=== PATIENT | female | born 1975 | race Two or more races ===

== ENCOUNTER 2020-07-13 12:54 | Outpatient (REF) | payer OTHER, SELFPAY ==
--- NOTE | ~2020-07-13 | MM_ITS ---
EXAMINATION: MM SCREENING DIGITAL BREAST TOMOSYNTHESIS, BILATERAL CLINICAL INFORMATION: Screening. Asymptomatic. The lifetime risk of breast cancer based on the Tyrer-Cuzick Model is 9%. COMPARISON: Mammography: 04/18/2019, 04/12/2018, 03/30/2017, 03/06/2017, 02/13/2016, 01/24/2015, 08/13/2013 TECHNIQUE: Digital breast tomosynthesis is performed in both the craniocaudal and mediolateral oblique views along with computer-aided detection (CAD). Synthesized 2D images are generated from the tomosynthesis. FINDINGS: The breasts are heterogeneously dense, which may obscure small masses (ACR BI-RADS breast composition Category c). The right CC tomography demonstrates a 0.7 cm asymmetric density just medial to midline 7 cm from nipple without correlate on MLO view. This could represent shifting fibroglandular tissue. Patient will be recalled for additional imaging. The remainder of the bilateral breasts show no significant changes from prior studies. There is no developing density or interval mass or architectural abnormality. Some scattered punctate regional calcifications again noted upper outer right breast. MM/MM tomosynthesis screening BI IMPRESSION: 1. Right: Asymmetric density medial to midline 7 cm from nipple on CC tomography, possibly shifting fibroglandular tissue. 2. Left: No mammographic evidence of malignancy. ASSESSMENT: BI-RADS 0: Incomplete - Need Additional Imaging Evaluation RECOMMENDATION: 1. Additional views of the right breast (3-D spot CC, 3-D rolled CC x2). 2. Targeted ultrasound if warranted after review of the additional views. 3. Radiology department staff will contact the patient for additional imaging. This patient's information was entered into a reminder system with a target due date for their next mammogram.
== END 2020-07-13 12:55 | disposition home or self-care (01) ==
LOC: HO.MAMMO 12:54
PROVIDERS: PCP Nurse Practitioner Family; Visit Provider Nurse Practitioner Family
DX: Z12.31 Encounter for screening mammogram for malignant neoplasm of breast (principal)
CPT/HCPCS: 77063; 77067

== ENCOUNTER 2020-07-20 07:56 | Outpatient (REF) | payer OTHER, SELFPAY ==
--- NOTE | ~2020-07-20 | MM_ITS ---
EXAMINATION: MM DIAGNOSTIC DIGITAL BREAST TOMOSYNTHESIS, RIGHT CLINICAL INFORMATION: Recall from screening for asymmetric density posterior breast just medial to midline on CC view possibly shifting fibroglandular densities. COMPARISON: Mammography: 07/13/2020, and prior exams dating back to 08/13/2013 TECHNIQUE: Digital breast tomosynthesis is performed. 2D images are generated from the tomosynthesis. The following views are obtained: 3-D rolled CC x2, 3-D spot CC. FINDINGS: The breasts are heterogeneously dense, which may obscure small masses (ACR BI-RADS breast composition Category c). Additional views show no mass or persistent asymmetric density. There is no developing density or architectural abnormality. Results are discussed with the patient at time of visit. MM/MM tomosynthesis added views R IMPRESSION: Additional views show no persistent asymmetric density. ASSESSMENT: BI-RADS 1: Negative RECOMMENDATION: Routine annual mammography screening. This patient's information was entered into a reminder system with a target due date for their next mammogram.
== END 2020-07-20 07:57 | disposition home or self-care (01) ==
LOC: HO.MAMMO 07:56
PROVIDERS: Visit Provider Nurse Practitioner Family
DX: R92.2 Inconclusive mammogram (principal)
CPT/HCPCS: 77061; 77065

== ENCOUNTER → 2020-12-29 08:26 | Outpatient (BNVA) | payer OTHER, SELFPAY | PROVIDERS: PCP Nurse Practitioner Family; Visit Provider Physician Assistant Medical | DX: M22.2X1 Patellofemoral disorders, right knee (principal) | CPT/HCPCS: 73564; 99203 ==

== ENCOUNTER → 2021-01-12 09:48 | Outpatient (BNVA) | payer OTHER, SELFPAY | PROVIDERS: PCP Nurse Practitioner Family; Visit Provider Physician Assistant Medical | DX: M22.2X1 Patellofemoral disorders, right knee (principal) | CPT/HCPCS: 99213 ==

== ENCOUNTER → 2021-01-26 13:08 | Outpatient (BNVA) | payer OTHER, SELFPAY | PROVIDERS: PCP Nurse Practitioner Family; Visit Provider Physician Assistant Medical | DX: M22.2X1 Patellofemoral disorders, right knee (principal) | CPT/HCPCS: 99213 ==

== ENCOUNTER 2021-03-08 08:00 | Outpatient (RCR) | payer OTHER, SELFPAY | END 2021-06-15 13:53 | disposition home or self-care (01) | LOC: HO.PT 08:00 | PROVIDERS: Visit Provider Nurse Practitioner Family | DX: M62.89 Other specified disorders of muscle (principal) | CPT/HCPCS: 97110; 97112; 97140; 97162; 97530 ==

== ENCOUNTER 2021-03-24 08:00 | Outpatient (RCR) | payer OTHER, SELFPAY ==
--- NOTE | 2021-01-05 12:40 | MHC.PT.EP ---
[facility] [place] Office [place] Office [place] Office [address] Caitlyn Pierce [address] [phone] F: [phone] F: [phone] F: [phone] F: [phone] Physical Therapy Plan of Care Date of Evaluation: Date of Surgery: Diagnosis: This is a 45 yo female presenting to skilled PT with a script for R PFS Assessment: This is a 45 yo female presenting to skilled PT with a script for R PFS. Patient reported 7 years ago she dislocated her R patella (improved with PT in the past, did not have surgical intervention). She returned to work in full and began at the gym however recently pain has started to increase and patient wants to conservatively tx in order to improve symptoms but also to prevent further injury. She is being followed by work connection and returns next week for a follow up. She does not have a referral to an orthopedic as of yet. Pain increases with sitting, standing, walking and squatting (prolonged positioning). Pain is located around the patella/anterior knee and is described as sharp at times and achy at others. She has not worked out for almost 2 months due to worry of reinjury. She notes swelling but denies crepitis, numbness or tingling. Assessment reveals pain that ranges up to a 4/10. She demos decreased hip ROM IR/ER with end range due to knee pain, decreased hip adductor and glut strength, impaired gait pattern with hip drop and increased ER, impaired patella joint mobility with hypermobility, TTP throughout medial aspect of knee joint as well as gross functional decline with prolonged positions. She is a good candidate for skilled PT 2x/wk for 6wks. Frequency and Duration: The patient will be seen 2x/wk for 6wks Short Term Goals: I in HEP Demo proper squatting techniques without increase in pain Insurance Verifier Goals: Return to gym safely and independently Report improvement in pain to no more than 2/10 at the worst Tolerate sitting/standing for at least at hour without increase in pain Improve LEFs by 10 points 5/5 BLE strength Treatment Plan: Modalities to reduce pain, spasms and effusion. Manual therapy to restore motion and function. Therapeutic exercise to improve strength and flexibility. Neuromuscular re-education for posture and balance. Therapeutic activities to return to functional activities of daily living. Electronically signed by: Macy Coffey PT Please sign and return to therapist. Thank you for your referral.
--- NOTE | 2021-02-15 11:38 | MHC.PT.RE ---
[facility] [place] Office [place] Office [place] Office [address] Caitlyn Pierce [address] [phone] F: [phone] F: [phone] F: [phone] F: [phone] Physical Therapy Re-evaluation Diagnosis: This is a 45 yo female presenting to skilled PT with a script for R PFS Date of Surgery: Date of Evaluation: 01/05/21 Treatments to Date: 10 Cancellations to Date: 1 No Shows to Date: 0 Subjective: Pt reports intermittent lateral R knee pain that occurs with stairs sometimes. She states she can work through the pain but it is there Pain Score: 3 Pain Location: R patella Objective Measures: lumbar/hip/knee AROM WNL MMT: hip flexion B 5/5, Glut max B 4+/5, Adductors R 4/5, L 4-/5, Glut med R 4-/5, L 4/5, ER/IR B 5/5, quad/HS B 5/5 Assessment: Pt reports she would like to continue with therapy as she feels that it is helping. She is able to ascend/descend stairs with intermittent pain where intiially she was unable to without breaks due to pain. She is I with HEP and has bought a [employer] ball for home. She has made improvements with normal AROM of lumbar/hip region, improved B LE strength (see objective measurements), and improved function. She would benefit from continued PT 1x/week for 4 more weeks to progress adductor and abductor strength to assist decrease in R patella pain and return to previous functional level. Short Term Goals: I in HEP met Demo proper squatting techniques without increase in pain met Assisted Goals: Return to gym safely and independently Report improvement in pain to no more than 2/10 at the worst -progressing (3/10) Tolerate sitting/standing for at least at hour without increase in pain (progressing with intermittent pain at times0 Improve LEFs by 10 points 5/5 BLE strength progressing Pt will be able to run > 15min with pain < 2/10 Frequency and Duration: The patient will be seen 1x/week for 4 more weeks Treatment Plan: Therapeutic Exercise Dynamic Therapeutic Activities Neuromuscular Re-ed Taping Home Exercise Program Patient Education educate on self taping Reviewed/ Agreed with Student Documentation: Therapist: Electronically signed by: Sapphire Kearney PT Please sign and return to therapist. Thank you for your referral.
--- NOTE | 2021-03-25 13:07 | MHC.PT.DC ---
[facility] [place] Office [place] Office [place] Office [address] Caitlyn Pierce [address] [phone] F: [phone] F: [phone] F: [phone] F: [phone] Physical Therapy Discharge Report Diagnosis: This is a 45 yo female presenting to skilled PT with a script for R PFS Date of Surgery: Date of Evaluation: 01/05/21 Date of Discharge: 03/25/21 Treatments to Date: 16 Cancellations to Date: 1 No Shows to Date: 0 Discharge Status: Achieved Goals Improved Function Independent with HEP Discharge Summary: Pt has made good progress towards goals allowing her to meet some and come close to meeting others. She is independent and compliant with her HEP at this point and will likely only continue to progress with continuation of HEP. Provided current HEP printouts and reviewed all exercises. Pt in agreement with plan to d/c to HEP. She has no pain at the last tx session and is ready for DC. She has a home gym that she is looking forward to getting back to. Electronically signed by: Macy Coffey, PT Please sign and return to therapist. Thank you for your referral.
== END 2021-03-25 13:08 | disposition home or self-care (01) ==
LOC: HO.PTCHIC 08:00
PROVIDERS: PCP Nurse Practitioner Family; Visit Provider Physician Assistant Medical
DX: M25.561 Pain in right knee (principal)
CPT/HCPCS: 97035; 97110; 97140; 97161; 97530

== ENCOUNTER 2021-08-25 16:10 | Outpatient (REF) | payer OTHER, SELFPAY ==
[2021-08-25 16:23] LABS: MANUAL DIFF FLAG NO
[2021-08-25 16:30] LABS: Basophils Percent Auto 0.4 % (0-2); Eosinophils Absolute Auto 0.2 X10*3/uL (0.0-0.4); Eosinophils Percent Auto 2.3 % (0-4); Hematocrit 35.4 % (37.0-47.0); Hemoglobin 11.6 g/dl (12.0-16.0); Imm Gran Abs Auto 0.02 X10*3/uL (0.00-0.03); Imm Gran Pct Auto 0.2 % (0.0-0.4); Lymphocytes Absolute Auto 3.2 X10*3/uL (1.2-4.9); Lymphocytes Percent Auto 34.7 % (20-40); Mean Corpuscular HGB Conc 32.8 g/dl (31.0-35.0); Mean Corpuscular Hemoglobin 28.2 pg (27.0-33.0); Mean Corpuscular Volume 85.9 fL (80.0-98.0); Mean Platelet Volume 9.7 fL (9.4-12.3); Monocytes Absolute Auto 0.6 X10*3/uL (0.1-1.2); Monocytes Percent Auto 6.8 % (2-11); Neutrophils Percent Auto 55.6 % (45-73); Platelet Count 220 X10*3/uL (160-400); Red Blood Count 4.12 X10*6/uL (4.20-5.50); Red Cell Distribution Width 12.4 % (11.0-16.0); White Blood Count 9.1 X10*3/uL (4.8-10.8)
[2021-08-25 17:21] LABS: Alanine Aminotransferase 12 U/L (0-31); Albumin Level 4.1 g/dL (3.5-5.0); Alkaline Phosphatase 86 U/L (39-117); Anion Gap 11 (12-20); Aspartate Amino Transferase 16 U/L (5-31); Bilirubin Total < 0.2 mg/dL (0.0-1.0); Blood Urea Nitrogen 13 mg/dL (9-16); Calcium 9.3 mg/dL (8.4-10.2); Carbon Dioxide 27 mmol/L (22-29); Chloride 104 mmol/L (96-108); Estimated Glomerular Filt Rate > 60; Glucose Random 112 mg/dL (60-115); Potassium 3.9 mmol/L (3.3-5.1); Sodium 138 mmol/L (135-145); Total Protein 7.6 g/dL (6.5-8.0)
[2021-08-25 17:23] LABS: Vitamin B12 > 2000 pg/mL (200-900)
== END 2021-08-25 16:11 | disposition home or self-care (01) ==
LOC: HO.LAB 16:10
PROVIDERS: PCP Nurse Practitioner Family; Visit Provider Nurse Practitioner Family
DX: R53.83 Other fatigue (principal); E53.8 Deficiency of other specified B group vitamins
CPT/HCPCS: 36415; 80053; 82607; 85025

== ENCOUNTER 2021-08-31 07:47 | Outpatient (REF) | payer OTHER, SELFPAY ==
--- NOTE | ~2021-08-31 | MM_ITS ---
EXAMINATION: MM SCREENING DIGITAL BREAST TOMOSYNTHESIS, BILATERAL CLINICAL INFORMATION: Screening. Asymptomatic. The lifetime risk of breast cancer based on the Tyrer-Cuzick Model is 9%. COMPARISON: Mammography: 07/20/2020 and prior exams dating back to 08/13/2013. TECHNIQUE: Digital breast tomosynthesis is performed in both the craniocaudal and mediolateral oblique views along with computer-aided detection (CAD). Synthesized 2D images are generated from the tomosynthesis. FINDINGS: The breasts are extremely dense, which lowers the sensitivity of mammography (ACR BI-RADS breast composition Category d). Right CC view has asymmetric density anterior outer breast 2.5 cm from nipple, measuring approximately 1 cm in size, possibly summation artifact. No correlate on MLO view. Patient will be recalled for additional imaging. The area of recall represents a different area from prior recall 2020. The remainder of the right breast is similar to prior exams. Left breast shows no significant mass or architectural abnormality. Neither breast shows abnormal calcifications. The bilateral axilla and skin contours are unremarkable. MM/MM tomosynthesis screening BI IMPRESSION: Right: -Asymmetric density anterior outer breast on CC view, possibly summation artifact. Left: -No mammographic evidence of malignancy. ASSESSMENT: BI-RADS 0: Incomplete - Need Additional Imaging Evaluation RECOMMENDATION: 1. Additional views of the right breast (spot CC, rolled CC x2). 2. Targeted ultrasound if warranted after review of the additional views. 3. Radiology department staff will contact the patient for additional imaging. This patient's information was entered into a reminder system with a target due date for their next mammogram.
== END 2021-08-31 07:48 | disposition home or self-care (01) ==
LOC: HO.MAMMO 07:47
PROVIDERS: Absent Provider Obstetrics & Gynecology; PCP Nurse Practitioner Family; Visit Provider Nurse Practitioner Family
DX: Z12.31 Encounter for screening mammogram for malignant neoplasm of breast (principal)
CPT/HCPCS: 77063; 77067

== ENCOUNTER 2021-09-10 14:58 | Outpatient (REF) | payer OTHER, SELFPAY ==
--- NOTE | ~2021-09-10 | MM_ITS ---
EXAMINATION: MM DIAGNOSTIC DIGITAL BREAST TOMOSYNTHESIS, RIGHT CLINICAL INFORMATION: Density lateral aspect right breast COMPARISON: Mammography: August 31, 2021 and studies dating back to August 13, 2013 TECHNIQUE: Digital breast tomosynthesis is performed. 2D images are generated from the tomosynthesis. The following views are obtained: Medial and lateral rolled craniocaudal views as well as spot compression craniocaudal view. FINDINGS: The breasts are extremely dense, which lowers the sensitivity of mammography (ACR BI-RADS breast composition Category d). Additional views show no significant mass, architectural abnormality, or abnormal calcifications. Results are provided to the patient at time of visit by the technologist. MM/MM tomosynthesis added views R IMPRESSION: Question right breast density corresponds to superimposition of fibroglandular tissue with no persistent underlying abnormality appreciated. ASSESSMENT: BI-RADS 1: Negative RECOMMENDATION: Routine annual mammography screening due in 12 months. This patient's information was entered into a reminder system with a target due date for their next mammogram.
== END 2021-09-10 14:59 | disposition home or self-care (01) ==
LOC: HO.MAMMO 14:58
PROVIDERS: PCP Obstetrics & Gynecology; Visit Provider Nurse Practitioner Family
DX: R92.2 Inconclusive mammogram (principal)
CPT/HCPCS: 77061; 77065

== ENCOUNTER 2021-10-19 11:12 | Outpatient (REF) | payer OTHER, SELFPAY ==
[2021-10-19 12:16] LABS: MANUAL DIFF FLAG NO
[2021-10-19 12:47] LABS: Basophils Percent Auto 0.4 % (0-2); Eosinophils Absolute Auto 0.3 X10*3/uL (0.0-0.4); Eosinophils Percent Auto 3.3 % (0-4); Hematocrit 36.6 % (37.0-47.0); Hemoglobin 12.1 g/dl (12.0-16.0); Imm Gran Abs Auto 0.02 X10*3/uL (0.00-0.03); Imm Gran Pct Auto 0.2 % (0.0-0.4); Lymphocytes Absolute Auto 3.1 X10*3/uL (1.2-4.9); Lymphocytes Percent Auto 32.4 % (20-40); Mean Corpuscular HGB Conc 33.1 g/dl (31.0-35.0); Mean Corpuscular Hemoglobin 28.2 pg (27.0-33.0); Mean Corpuscular Volume 85.3 fL (80.0-98.0); Mean Platelet Volume 9.6 fL (9.4-12.3); Monocytes Absolute Auto 0.8 X10*3/uL (0.1-1.2); Monocytes Percent Auto 8.5 % (2-11); Neutrophils Absolute Auto 5.2 x10*3/uL (2.0-8.3); Neutrophils Percent Auto 55.2 % (45-73); Platelet Count 251 X10*3/uL (160-400); Red Blood Count 4.29 X10*6/uL (4.20-5.50); White Blood Count 9.5 X10*3/uL (4.8-10.8)
[2021-10-19 13:14] LABS: Iron 89 mcg/dL (30-160); Percent Iron Saturation 22 % (15-50); Total Iron Binding Capacity 397 mcg/dL (228-428); Unsaturated Iron Binding 308 ug/dL
== END 2021-10-19 11:13 | disposition home or self-care (01) ==
LOC: HO.LAB 11:12
PROVIDERS: PCP Nurse Practitioner Family; Visit Provider Nurse Practitioner Family
DX: D50.8 Other iron deficiency anemias (principal)
CPT/HCPCS: 36415; 83540; 85025

== ENCOUNTER 2021-12-24 16:42 | Emergency (ER) | payer OTHER, SELFPAY ==
[2021-12-24 16:48] VITALS: BP 141/83; PULSE 100; RESP 18; TEMP 36.7; O2SAT 97; BMI 22.4
--- NOTE | 2021-12-24 16:53 | ED.ANIMALBIT ---
HPI - Animal Bite General Chief Complaint: Animal Bite Stated Complaint: bit by dog Time Seen by Provider: 12/24/21 16:48 Source: patient Mode of arrival: ambulatory Limitations: no limitations History of Present Illness HPI narrative: 46 yo female presents to the ER for evaluation of dog bites. She states just prior to arrival her brother's [place] bulldog attacked her from behind, biting her right upper and inner thigh and also got some of her left heel. The dog it up to date on his vaccinations. Patient is not up to date on her Tdap. She reports a burning type pain on the lacerations to the inner upper right thigh. There are a few superficial ones as well as one with exposed adipose tissue. complaint: animal bite Onset (ago): minute(s) Animal: dog Description of animal: household pet Mechanism: bite Location - Extremities: left: foot and right: thigh Pain description: burning Severity scale (1-10): 5 Associated symptoms: none Related Data Patient tetanus UTD: No Previous Rx's Medication Instructions Recorded amoxicillin 875 mg-potassium 1 tab PO BID #14 tabs 12/24/21 clavulanate 125 mg tablet ibuprofen 600 mg tablet 600 mg PO Q8H PRN pain #20 tabs 12/24/21 Allergies Allergy/AdvReac Type Severity Reaction Status Date / Time sulfamethoxazole Allergy Intermediate HIVES Unverified 12/05/19 15:18 [From BACTRIM DS] trimethoprim Allergy Intermediate HIVES Unverified 12/05/19 15:18 [From BACTRIM DS] Sulfa (Sulfonamide Allergy Unknown Verified 09/15/16 00:00 Antibiotics) Review of Systems Review of Systems: Constitutional: No Fever, No Chills ENT/Mouth: No sore throat, No Rhinorrhea Cardiovascular: No Chest Pain, No SOB Gastrointestinal: No Nausea, No Vomiting, No abdominal Pain Musculoskeletal: No joint pain, No Myalgias Skin: + Skin Lesions, No rash Neuro: No Weakness, No Numbness Psych: + Anxiety/Panic, No Depression Heme/Lymph: No Bruising, No Lymphadenopathy PMFSH Social History Social History Advance Directives: No Advance Directives Information Provided: No Physical Exam ED Vital Signs: Vital Signs - 24 hr 12/24/21 16:48 Temperature 98.0 F Pulse Rate 100 Respiratory Rate 18 Blood Pressure 141/83 H Pulse Oximetry 97 Oxygen Delivery Method Room Air BMI result Body Mass Index 22.4 Appearance: Alert. Oriented X3. No acute distress. HEENT: normal inspection CVS: Normal heart rate and rhythm. Pulses normal. Respiratory: No respiratory distress. Skin: Skin warm and dry. Normal skin color. Normal skin turgor. No rashes. Extremities: right upper inner thigh with a 3cm linear superficial laceration with exposed adipose tissue, no active bleeding, small superficial abrasions surrounding. left heel with small wound, superficial Neuro: Oriented X 3. No motor deficit. No sensory deficit. Course Course Course Narrative: 46 y/o female presenting with right upper thigh laceration from a dog bite - amenable to suture repair. will also give tdap. Reevaluation(s) Reevaluation #1: wounds extensive irrigated. 1 lac was repaired with 2 sutures. wound care and infection precautions discussed. 1st dose of Augmentin given. stable for d/c. Procedures Laceration Laceration 1: Site: lower extremity Side (If applicable): right Size (cm): 2.5 Description: linear Depth: simple, single layer Local Anesthetic: lidocaine 1% Amount of anesthesia used (mL): 4 Pre-repair: wound explored and irrigated extensively Skin layer closed with: nylon Size (cm): 4-0 Number of sutures: 2 Technique: simple, interrupted Critical Care Time Critical Care Time Critical Care Time: No Discharge Plan Discharge Clinical Impression: Bite by animal Patient Disposition: Home, Self-Care Instructions: Animal Bite (ED) Additional Instructions: Take the prescribed antibiotic as directed, complete the entire course If you develop signs and symptoms of infection like increased pain, redness, drainage of pus call your doctor or come back to the ER for further evaluation Prescriptions: New amoxicillin-pot clavulanate 875-125 mg tablet 1 tab PO BID Qty: 14 0RF ibuprofen 600 mg tablet 600 mg PO Q8H PRN (Reason: pain) Qty: 20 0RF Referrals: Milagro Miller NP [Primary Care Provider] - (dog bite)
[2021-12-24] MEDS: Amoxicillin/Potassium Clav 875 MG TABLET PO (17:26)
[2021-12-24] MEDS: Ibuprofen 600 MG TABLET PO (17:26)
[2021-12-24] MEDS: Lidocaine HCl 2 % MPF 5 ML VIAL INFILTRATI ×2 (17:27)
[2021-12-24] MEDS: Diphth,Pertus(ACell),Tet Adult 0.5 ML SYRINGE IM (17:33)
== END 2021-12-24 18:08 | disposition home or self-care (01) ==
PROVIDERS: Emergency Provider Emergency Medicine; PCP Nurse Practitioner Family
DX: S70.372A Other superficial bite of left thigh, initial encounter (principal); S70.371A Other superficial bite of right thigh, initial encounter; S80.812A Abrasion, left lower leg, initial encounter; S80.811A Abrasion, right lower leg, initial encounter; W54.0XXA Bitten by dog, initial encounter; Y93.9 Activity, unspecified; Y92.9 Unspecified place or not applicable; Y99.9 Unspecified external cause status; Z79.899 Other long term (current) drug therapy
CPT/HCPCS: 12001; 90471; 90715; 99283; 99284

== ENCOUNTER 2022-09-06 07:36 | Outpatient (REF) | payer OTHER, SELFPAY ==
--- NOTE | ~2022-09-06 | MM_ITS ---
EXAMINATION: MM SCREENING DIGITAL BREAST TOMOSYNTHESIS, BILATERAL CLINICAL INFORMATION: Screening. Asymptomatic. The lifetime risk of breast cancer based on the Tyrer-Cuzick Model is 9%. COMPARISON: Mammography: 09/10/2021, 08/31/2021, 07/20/2020, 07/13/2020, 04/18/2019 TECHNIQUE: Digital breast tomosynthesis is performed in both the craniocaudal and mediolateral oblique views along with computer-aided detection (CAD). Synthesized 2D images are generated from the tomosynthesis. FINDINGS: The breasts are heterogeneously dense, which may obscure small masses (ACR BI-RADS breast composition Category c). Parenchymal pattern borders on extremely dense. No developing density or architectural abnormality. There are no significant masses, abnormal calcifications, or other abnormalities. The axilla and skin contours are unremarkable. No significant changes. MM/MM tomosynthesis screening BI IMPRESSION: No mammographic evidence of malignancy. ASSESSMENT: BI-RADS 1: Negative RECOMMENDATION: -Routine annual mammography screening. This patient's information was entered into a reminder system with a target due date for their next mammogram.
== END 2022-09-06 07:37 | disposition home or self-care (01) ==
LOC: HO.MAMMO 07:36
PROVIDERS: PCP Nurse Practitioner Family; Visit Provider Nurse Practitioner Family
DX: Z12.31 Encounter for screening mammogram for malignant neoplasm of breast (principal)
CPT/HCPCS: 77063; 77067

== ENCOUNTER 2023-08-15 11:53 | Outpatient (REF) | payer OTHER, SELFPAY ==
--- NOTE | ~2023-08-15 | US_ITS ---
EXAMINATION: US BREAST, BILATERAL CLINICAL INFORMATION: Heterogeneously dense breasts. COMPARISON: No prior screening ultrasound. Previous mammography 09/06/2022, 08/31/2021, 07/13/2020. TECHNIQUE: High-resolution grayscale sonography of the bilateral breasts was performed by a technologist with a high frequency linear transducer following a standardized protocol. All 4 quadrants of each breast including retroareolar areas were imaged, as well as bilateral axillary regions. FINDINGS: LEFT BREAST: There is heterogeneously dense breast parenchyma identified. No mass, abnormal shadowing, area of architectural distortion, complex cyst or other sonographically suspicious lesion is identified. RIGHT BREAST: There is heterogeneously dense breast parenchyma identified. No mass, abnormal shadowing, area of architectural distortion, complex cyst or other sonographically suspicious lesion is identified. US/US breast BI complete IMPRESSION: No sonographic evidence of malignancy in either breast. ASSESSMENT: Left breast: BI-RADS 1 Right breast: BI-RADS 1 RECOMMENDATION: Routine annual mammography screening.
== END 2023-08-15 11:54 | disposition home or self-care (01) ==
LOC: HO.MAMMO 11:53
PROVIDERS: Visit Provider Obstetrics & Gynecology
DX: R92.333 Mammographic heterogeneous density, bilateral breasts (principal)
CPT/HCPCS: 76641

== ENCOUNTER → 2023-08-15 12:00 | Outpatient (BNV) | payer OTHER, SELFPAY | PROVIDERS: Visit Provider Radiology Diagnostic Radiology | DX: R92.333 Mammographic heterogeneous density, bilateral breasts (principal) | CPT/HCPCS: 76641 ==

== ENCOUNTER → 2023-09-20 12:15 | Outpatient (BNV) | payer BC, SELFPAY | PROVIDERS: Visit Provider Radiology Diagnostic Radiology | DX: Z12.31 Encounter for screening mammogram for malignant neoplasm of breast (principal) | CPT/HCPCS: 77063; 77067 ==

== ENCOUNTER 2023-09-20 12:19 | Outpatient (REF) | payer BC, SELFPAY | END 2023-09-20 12:20 | disposition home or self-care (01) | LOC: HO.MAMMO 12:19 | PROVIDERS: Visit Provider Obstetrics & Gynecology | DX: Z12.31 Encounter for screening mammogram for malignant neoplasm of breast (principal) | CPT/HCPCS: 77063; 77067 ==

== ENCOUNTER 2024-04-01 09:38 | Outpatient (REF) | payer BC, SELFPAY ==
--- NOTE | ~2024-04-01 | US_ITS ---
EXAMINATION: US SCREENING ULTRASOUND BREAST, BILATERAL CLINICAL INFORMATION: Dense breasts on mammography. Screening ultrasound. COMPARISON: Ultrasound July 2023. TECHNIQUE: Ultrasound is performed using grayscale imaging and color Doppler. Imaging is performed to include the four quadrants and retroareolar region. Both breasts are imaged. FINDINGS: Right breast: There is no suspicious finding by ultrasound. There is no solid mass or focal architectural abnormality. There multiple simple to minimally complicated cysts at 9:00 4 7 m from the nipple the largest measures up to 12 mm these are benign. Left breast: There is no suspicious finding by ultrasound. There is no solid mass or focal architectural abnormality. US/US breast BI complete IMPRESSION: No suspicious findings on screening breast ultrasound. Minimally complicated and simple cysts in the right breast on ultrasound. Benign. ASSESSMENT: BI-RADS 2 - Benign Findings RECOMMENDATION: 1 year F/U This patient's information was entered into a reminder system with a target due date for their next mammogram. Electronically signed by: Clarissa Cobos DO 04/01/2024 11:53 AM [id number]
== END 2024-04-01 09:39 | disposition home or self-care (01) ==
LOC: HO.MAMMO 09:38
PROVIDERS: PCP Internal Medicine; Visit Provider Obstetrics & Gynecology
DX: R92.333 Mammographic heterogeneous density, bilateral breasts (principal)
CPT/HCPCS: 76641

== ENCOUNTER 2024-11-12 15:07 | Outpatient (REF) | payer BC, SELFPAY ==
--- OUTSIDE RECORDS SUMMARY | 2024-11-12 16:04 | XMS_ITS | Clinical Summary ---
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 Active ibuprofen (ADVIL,MOTRIN) 200 MG tablet Take 200 mg by mouth daily as needed for pain (specific location in comments). Active cyanocobalamin, vitamin B-12, 1000 MCG tablet Take 1,000 mcg by mouth daily. Active ascorbic acid, vitamin C, (VITAMIN C) 250 MG tablet Take 250 mg by mouth daily. Active cetirizine (ZYRTEC) 10 MG tablet Take 10 mg by mouth daily. Active biotin 1 mg tablet Take 1,000 mcg by mouth daily. Active fluticasone propionate (FLONASE) 50 mcg/actuation nasal spray 2 sprays by Nasal route daily. 3 Bottle 3 1 Active Additional Information Patient not taking.Reported on 04/29/2023 sod bicarb-sod chlor-neti pot pkdv 1 kit by sinus irrigation route daily. 1 each Active Additional Information Patient not taking.Reported on 04/29/2023 FERROUS SULFATE ORAL Take 2 tablets by mouth daily. ? mg Active zinc sulfate 50 mg zinc (220 mg) Tab Take 220 mg by mouth daily. Active CAT'S CLAW, UNCARIA TOMENTOSA, ORAL Take by mouth. Active Active Problems Problem Noted Date Diagnosed Date Dog bite 01/03/2022 Abscess of right leg 01/03/2022 Assessment & Plan (01/03/2022 11:07 AM EDT): Not all the criteria are met for ongoing abscess and yet the tenderness with the hard nodule underneath the skin is present. It be reasonable to continue another 7 days of antibiotics therefore Augmentin 875 mg twice daily for additional 7days. If however the area gets inflamed and reddened will refer her to a general surgeon to open up if an abscess persists. Meanwhile we will continue with the antifungal regarding the yeast infection but seems to be very resistant when she does start antibiotics or in this case restart. Epistaxis 07/02/2020 Assessment & Plan (02/02/2021 9:16 AM EST): Encouraged reschedule appointment with ENT for nasal septal cautery. Assessment & Plan (07/02/2020 9:25 AM EDT): Recurrent epistaxis with visible septal vessel. Refer to ENT for cautery. Allergic rhinitis 05/26/2020 Overview (02/02/2021): Aeroallergens skin testing July 2020: POSITIVE to mouse epithelium, tree, grass, and weed pollens Assessment & Plan (02/02/2021 9:16 AM EST): Despite predominate seasonal allergen positivity on skin testing, has perennial symptoms with indoor triggers and interestingly using a mask. Unsure mechanism related to mask wearing though consistent based on history. Discussed options including allergy immunotherapy which I feel will be less useful at this point. Continuing medical therapy with more consistent daily use. Finally, suggested trial of leukotriene inhibitors as an alternative mechanism. PLAN: Trial of montelukast 10 mg p.o. nightly. Reviewed potential side effects, including but not limited to vivid dreams, nightmares, or mood disturbance. Patient to stop medication immediately if develops untoward side effects. If no benefit within 2 to 4 weeks, can discontinue. If no improvement or limited response to montelukast, would encourage DAILY use of Flonase plus or minus Zyrtec and eyedrops. Return in 6 months after spring pollen season to review. Assessment & Plan (07/02/2020 9:27 AM EDT): Adult onset allergic rhinitis. Clear history of pollen allergies, though perennial allergens less clear. Notable improvement while in [place] suggesting component in home environment. Potential causes could include dust mites, dog dander, feathers, though no known mold exposures. PLAN: Increase Flonase to 2 sprays each side once daily. Can increase to twice daily if necessary. Continue Zyrtec. Trial of Zaditor eyedrops Schedule for allergy skin testing. Patient aware must hold Zyrtec and eyedrops at least 5 days prior to testing. Pending results, could consider trial of leukotriene inhibitors and/or antihistamine nasal spray. But based on severity of symptoms, patient will likely benefit from allergy immunotherapy. Vitamin B12 deficiency 05/26/2020 Cervicalgia 06/13/2017 Assessment & Plan (06/13/2017 3:23 PM EDT): Await imaging. Suggested continued massage and chiropractor f/u. Can trial acupuncture. Bilateral hand pain 06/13/2017 Headache 04/26/2017 Immunizations Immunization Administration Dates Next Due COVID-19 (Pre-01/09) Moderna Vaccine, mRNA, PF 04/29/2020,04/01/2020 Hepatitis A, Adult 05/27/2019,12/19/2018 INFLUENZA, SPLIT VIRUS, TRIV ALENT W/ PRESERVATIVE IM 12/04/2015,02/04/2014,12/14/2010 Influenza Quadrivalent MDCK Preservative Free IM 12/09/2022 Influenza Quadrivalent MDCK w/Preservative IM 12/10/2019 Influenza Quadrivalent Prese rvative Free IM 01/25/2022,12/01/2020,12/19/2018,2017,04/26/2017 Influenza trivalent preserva tive free intradermal 02/01/2013 Tdap 12/24/2021,12/17/2018 Family History Medical History Relation Comments Heart disease Father Lung cancer Father Stroke Maternal Grandfather Rheumatoid arthritis Maternal Grandmother Stroke Maternal Grandmother Hypertension Mother Stroke Mother Hypertension Sister Allergic rhinitis Son 1 No Known Problems Son 2 Relation Status Comments Brother 1 Alive Brother 2 Alive Brother 3 Alive Brother 4 Alive Brother 5 Alive Brother 6 Alive Brother 7 Alive Father Maternal Grandfather Alive Maternal Grandmother Alive Mother Sister Alive Son 1 Alive Son 2 Alive Social History Tobacco Use Types Packs/Day Years Used Date Smoking Tobacco: Never Smokeless Tobacco: Never Tobacco Cessation:Counseling Given: Not Answered Comments:childhood second hand smoke Alcohol Use Standard Drinks/Week Comments Yes 0 (1 standard drink = 0.6 oz pur e alcohol) once a year Child or Family Care Answer Date Record ed Do you have problems with on e of the following making it difficult for you to work, study, or receive health care? No 01/25/2023 Education Answer Date Recorded Are you interested in help w ith more adult education (for example, completing high school, GED, job training, learning the [place] language, technical skills, or developing parenting skills)? No 01/25/2023 Are you concerned about learning? Not on file 01/25/2023 No 01/25/2023 Yes 01/25/2023 Food Answer Date Recorded Within the past 6 months we worried whether our food would run out before we got money to buy more. Never True 01/25/2023 Within the past 6 months the food we bought just didn't last and we didn't have enough money to get more. Never True Residential Stability Answer Date Recor ded What is your housing situation today? I have sania sing 01/25/2023 How many times have you move d in the past 12 months? Zero (I did not move) 01/25/2023 Paying for Meds Answer Date Recorded Do you have trouble paying for medicines? No 01/25/2023 Paying Utility Bills Answer Date Record ed Do you have trouble paying your heating or elect ricity bill? No 01/25/2023 Transportation Answer Date Recorded Has the lack of transportati on kept you from medical appointments or from getting medications? No 01/25/2023 Unemployment Answer Date Recorded Are you currently unemployed or working on a part-time or temporary basis, and looking for work? No 01/25/2022 Digital Access Answer Date Recorded No 01/25/2023 Yes 01/25/2023 Do you have reliable internet access at home? Ye john 01/25/2023 Do you have a device (e.g., phone, tablet, computer) with a working camera? Yes 01/25/2023 Intimate Partner Violence Answer Date R ecorded Denied Basic Needs Not on file 01/25/2023 In the past 12 months have y ou been in a relationship with a person who hurts, threatens, or tries to control you? No 01/25/2023 Worried food would run out Not on file 01/25 In the past 12 months have y ou been in a relationship with a person who hurts, threatens, or tries to control you? No 01/25/2023 Comments No Sex and Gender Information Value Date Recorded Sex Assigned at Female 05/23/2020 10:08 AM EST Legal Sex Female 9:30 PM EDT Gender Identity Female 05/23/2020 10:08 AM EST Sexual Orientation Straight 05/23/2020 10 :08 AM EST Last Filed Vital Signs Vital Sign Reading Time Taken Comments Blood Pressure 128/80 10/03/2023 3:34 PM EDT Pulse 74 10/03/2023 3:34 PM EDT Temperature 36.4 C (97.6 F) 10/03/2023 3:34 PM EDT Respiratory Rate 16 10/03/2023 3:34 PM EDT Oxygen Saturation 98% 10/03/2023 3:34 PM EDT Inhaled Oxygen Concentration - - Weight 61.2 kg (135 lb) 09/07/2022 12:42 PM EDT Height 160 cm (5' 3 ) 09/07/2022 12:42 PM EDT Body Mass Index 23.91 09/07/2022 12:42 PM EDT Plan of Treatment Health Maintenance Due Date Last Done Comments COLOGUARD 2018 FIT TEST 2018 FOBT 2018 SIGMOIDOSCOPY 2018 VIRTUAL COLONOSCOPY 2018 PAP SMEAR 05/06/2021 05/06/2016 PNEUMOCOCCAL VACCINES (50+ years) (1 of 1 - PCV) 07/22/2023 ZOSTER VACCINES (1 of 2) 07/22/2023 COVID-19 VACCINE (3 - season) 2023 04/29/2020, 04/01/2020 DEPRESSION SCREENING 01/26/2024 01/25/2023, 01/26/20 23 LIPID PANEL 05/15/2024 05/15/2019, 04/21, 05/15/2019, Additional history exists MAMMOGRAM 09/06/2024 09/06/2022, 08/19, 08/31/2021, Additional history exists Adult Td,Tdap Booster 12/25/2031 12/24/2021, 019 COLONOSCOPY 01/11/2033 01/11/2023, 04/26/2013 COLORECTAL CANCER SCREENING 01/11/2033 HIV ONE-TIME SCREENING (18-65 YEARS) Completed 05/15/2019 HEPATITIS A VACCINES Aged Out 05/27/2019, 12/20/19 19 No longer eligible based on patient's age to complete this topic HEPATITIS C SCREENING Completed 05/26/2020 SMOKING STATUS SCREENING (Once After 26 Yrs) Completed 10/03/2023 HIB VACCINES Aged Out No longer eligi ble based on patient's age to complete this topic MENINGOCOCCAL VACCINES (ACWY) Aged Out No longer eligible based on patient's age to complete this topic MENINGOCOCCAL VACCINES (B) Aged Out N o longer eligible based on patient's age to complete this topic Medical Devices Not on file Procedures Procedure Name Priority Date/Time Associated Diagnosis Comments COLONOSCOPY FOR RESULT ENTRY ONLY Routine 01/11/2023 HM MAMMOGRAPHY Routine 09/06/2022 HEPATITIS C ANTIBODY, QUALITATIVE Routine 05/26/2020 10:16 AM EST Pre-operative laboratory examination OUTSIDE HDL Routine 05/15/2019 OUTSIDE HIV Routine 05/15/2019 from Last 3 Months or Most Recently Relevant to Health Maintenance Results * HM COLONOSCOPY FOR RESULT ENTRY ONLY (01/11/2023) us Historical Provider HEALTH MAINTENANCE Edited Result - Final * HM MAMMOGRAPHY FOR RESULT ENTRY ONLY (09/06/2022) us Milagro Miller NP HEALTH MAINTENANCE Edited Resul t - Final * Hepatitis C antibody, qualitative (05/26/2020 10:16 AM EST) HCV NON-REACTIV E NON-REACTI VE [facility] Blood 05/26/2020 10:1 6 AM EST 05/26/2020 10:19 AM EST us Milagro Miller NP LAB BLOOD ORDERABLES Final Resu lt [facility] [address] [place] [address] * OUTSIDE HIV TEST (05/15/2019) HIV - External Neg Historical Provider MD LAB BLOOD ORDERABLES Liliam l Result * Outside HDL (05/15/2019) HDL - External 43 40 - 80 mg/dL Historical Provider MD LAB BLOOD ORDERABLES Liliam l Result from Last 3 Months or Most Recently Relevant to Health Maintenance [facility] POS [facility] Member Subscriber Plan / Payer (Ef fective 2022-Present) Name:Beth Galicia Relation to Subscriber:Self Name:Beth Galicia Payer ID:Not on file Type:PPO [address] [facility] POS [facility] PPO PHCS Member Subscriber Plan / Payer (Ef fective 2022-Present) Name:Beth Galicia Relation to Subscriber:Self Name:Beth Galicia Payer ID:Not on file Type:O Address: [address] Care Teams Straightening Press Operator Helper Relationship Specialty Start Date End Date Pcp, Unknown PCP - General 10/03/23 Additional Source Comments The information contained in this document represents components of the legal health record. It is not the complete legal health record.[facility]
== END 2024-11-12 15:08 | disposition home or self-care (01) ==
LOC: HO.MAMMO 15:07
PROVIDERS: PCP Internal Medicine; Visit Provider Internal Medicine
DX: Z12.31 Encounter for screening mammogram for malignant neoplasm of breast (principal)
CPT/HCPCS: 77063; 77067

== ENCOUNTER → 2024-11-12 15:15 | Outpatient (BNV) | payer BC, SELFPAY | PROVIDERS: PCP Internal Medicine; Visit Provider Radiology Body Imaging | DX: Z12.31 Encounter for screening mammogram for malignant neoplasm of breast (principal) | CPT/HCPCS: 77063; 77067 ==

== ENCOUNTER → 2024-11-25 13:30 | Outpatient (BNV) | payer BC, SELFPAY | PROVIDERS: PCP Internal Medicine; Visit Provider Radiology Body Imaging | DX: N60.01 Solitary cyst of right breast (principal) | CPT/HCPCS: 76642; 77061; 77065 ==

== ENCOUNTER 2024-11-25 13:32 | Outpatient (REF) | payer BC, SELFPAY ==
--- NOTE | ~2024-11-25 | MM_ITS ---
EXAMINATION(S): 1. MM DIAGNOSTIC DIGITAL BREAST TOMOSYNTHESIS, RIGHT 2. Targeted ultrasound of the right breast CLINICAL INFORMATION: Callback from screening for 1.5 cm mass in the upper outer quadrant. COMPARISON: November 12, 2024 TECHNIQUE: Digital breast tomosynthesis is performed in Full field ML 90 degrees along with computer-aided detection (CAD). Synthesized 2D images are generated from the tomosynthesis. Spot compression tomosynthesis images were also obtained. FINDINGS: BREAST COMPOSITION: There are scattered areas of fibroglandular density (ACR BI-RADS breast composition Category b). RIGHT BREAST: An approximately 1.6 cm oval mass is redemonstrated on today's images in the upper outer quadrant at approximately 6 cm from the nipple (ML 90 degrees , spot MLO and spot CC ). Targeted ultrasound of the right breast was performed at the location of the mammographic finding. The survey shows a 1.3 x 0.9 x 1.3 cm simple cyst at 10 o'clock position 7 cm from the nipple. No internal vascularity demonstrated with color Doppler evaluation. Findings correlate with the mammographic finding. MM/MM tomosynthesis added views R IMPRESSION: RIGHT BREAST: Simple cyst at 10 o'clock position at 7 cm from the nipple. Benign, no evidence of malignancy. Normal interval follow-up is recommended in 12 months. ASSESSMENT: BI-RADS 2 - Benign Findings RECOMMENDATION: 1 year F/U Results were provided to the patient at time of visit by the technologist. This patient's information was entered into a reminder system with a target due date for their next mammogram. Electronically signed by: Marco A Jimenez MD 11/25/2024 05:49 PM EDT
--- OUTSIDE RECORDS SUMMARY | 2024-11-25 15:46 | XMS_ITS | Clinical Summary ---
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 Notable improvement while in [place] suggesting component in home environment. Potential causes [...] high school, GED, job training, learning the Lao language, technical skills, or developing parenting skills)? [...] 07/22/2023 ZOSTER VACCINES (1 of 2) 07/22/2023 DEPRESSION SCREENING 01/26/2024 01/25/2023, 01/26/20 23 LIPID PANEL 05/15/2024 05/15/2019, 04/21, 05/15/2019, Additional history exists MAMMOGRAM 09/06/2024 09/06/2022, 08/19, 08/31/2021, Additional history exists INFLUENZA VACCINE (#1) 2024 , 01/25/2022, 12/01/2020, Additional history exists COVID-19 VACCINE ( - season) 2024 04/29/2020, 04/01/2020 Adult Td,Tdap Booster 12/25/2031 12/24/2021, 019 COLONOSCOPY [...] Recently Relevant to Health Maintenance Results * COLONOSCOPY FOR RESULT ENTRY ONLY (01/11/2023) us Historical Provider HEALTH MAINTENANCE Edited Result - Final * MAMMOGRAPHY FOR RESULT ENTRY ONLY (09/06/2022) us Milagro Miller NP HEALTH MAINTENANCE Edited Resul t - Final * Hepatitis C antibody, qualitative (05/26/2020 10:16 AM EST) Pathologist [facility] HCV NON-REACTIV E NON-REACTI VE [facility] Blood 05/26/2020 10:1 6 AM EST 05/26/2020 10:19 AM EST Milagro Miller NP LAB BLOOD ORDERABLES Final Resu lt [facility] [address] [place] [address] * OUTSIDE HIV TEST (05/15/2019) Pathologist [facility] HIV - External Neg Historical Provider MD LAB BLOOD ORDERABLES Liliam l Result * Outside HDL (05/15/2019) Pathologist [facility] HDL - External 43 40 - 80 mg/dL Historical Provider MD LAB BLOOD ORDERABLES Liliam l Result from Last 3 Months or Most Recently Relevant to Health Maintenance [facility] [place] [address] [place] [address]S POS [facility] [address] [place] [place] [address]S [facility] [place] [address] [place], [place] [address]S [facility] Member Subscriber Plan / Payer (Ef fective 2022-Present) Name:Beth Galicia Relation to Subscriber:Self Name:GaliciaBeth Payer ID:Not on file Type:PPO [address]: [address] [place], [place] [address] Member Subscriber Plan / Payer (Ef fective 2022-) Name:Beth Galicia Relation to Subscriber:Self Name:Beth Galicia Payer ID:Not on file Type:PPO [address]: [address] [facility] Care Teams Securities Research Analyst Relationship Specialty Start Date End Date Pcp, Unknown PCP - General 10/03/23 Additional Source Comments The information contained in this document represents components of the legal health record. It is not the complete legal health record.[facility]
== END 2024-11-25 13:33 | disposition home or self-care (01) ==
LOC: HO.MAMMO 13:32
PROVIDERS: PCP Internal Medicine; Visit Provider Internal Medicine
DX: N64.89 Other specified disorders of breast (principal)
CPT/HCPCS: 76642; 77061; 77065

== ENCOUNTER → 2025-03-10 10:32 | Outpatient (BNVA) | payer OTHER, SELFPAY | PROVIDERS: PCP Internal Medicine; Visit Provider Physician Assistant Medical | DX: S43.401A Unspecified sprain of right shoulder joint, initial encounter (principal); S16.1XXA Strain of muscle, fascia and tendon at neck level, initial encounter; S46.811A Strain of other muscles, fascia and tendons at shoulder and upper arm level, right arm, initial encounter; X50.1XXA Overexertion from prolonged static or awkward postures, initial encounter | CPT/HCPCS: 73030; 99203 ==

== ENCOUNTER → 2025-03-17 11:27 | Outpatient (BNVA) | payer OTHER, SELFPAY | PROVIDERS: PCP Internal Medicine; Visit Provider Internal Medicine | DX: S43.401A Unspecified sprain of right shoulder joint, initial encounter (principal); S16.1XXA Strain of muscle, fascia and tendon at neck level, initial encounter; S46.811A Strain of other muscles, fascia and tendons at shoulder and upper arm level, right arm, initial encounter; S46.812A Strain of other muscles, fascia and tendons at shoulder and upper arm level, left arm, initial encounter; X50.1XXA Overexertion from prolonged static or awkward postures, initial encounter | CPT/HCPCS: 99213 ==